=== PATIENT | female | born 1950 ===

== ENCOUNTER 2017-09-23 09:23 | Emergency (ER) | payer OTHER ==
[~2017-09-23] VITALS: Ht 160 cm; Wt 66.2 kg
[2017-09-23] MEDS ORDERED: PREDNISONE5 M1 (09:45)
[2017-09-23] MEDS ORDERED: AZATHIOPRINE50 MG (09:46)
[2017-09-23] MEDS ORDERED: HYZAAR 100-251 EACH (09:46)
== END 2017-09-23 12:40 | disposition home or self-care (01) ==
LOC: ER 09:23
DX: M54.2 Cervicalgia (principal); M62.838 Other muscle spasm; G62.9 Polyneuropathy, unspecified